=== PATIENT | female | born 1960 | race Caucasian/White ===

== ENCOUNTER → 2024-10-17 13:45 | Outpatient (CLI) | payer OTHER, SELFPAY ==
--- NOTE | 2024-10-17 13:50 | DI.RAD.S_ITS ---
PROCEDURE: XR LUMBAR SPINE MIN 4V INDICATIONS: BACK PAIN TECHNIQUE: 5 views of the lumbar spine were acquired, including bilateral oblique views. COMPARISON: None. FINDINGS: Bones: 5 nonrib-bearing vertebrae are present with possible partial lumbarization of S1 variant. Mild levoscoliosis. No vertebral body compression fractures. Multilevel degenerative changes are noted throughout the lumbar spine with disc space narrowing, facet osseous hypertrophic changes most notably at L4-5 and L5-S1. Mild degenerative changes of the sacroiliac joints and hips. Oblique images: No radiographic evidence of pars defects. IMPRESSION: Degenerative changes as discussed above. If symptoms persist or worsen, or there is high clinical suspicion of lumbar abnormality, MRI could be performed. Dictated by: Brayan Engel M.D. on 10/17/2024 at 14:46 Approved by: Brayan Engel M.D. on 10/17/2024 at 14:51
--- NOTE | 2024-10-17 13:50 | DI.RAD.S_ITS ---
PROCEDURE: XR CERVICAL SPINE 5V INDICATIONS: NECK PAIN TECHNIQUE: 5 views of the cervical spine acquired. COMPARISON: None. FINDINGS: Straightening of the normal cervical lordosis some of which may be artifact from positioning or related to muscle spasm or degenerative changes. Multilevel degenerative changes with disc space narrowing, uncovertebral and facet hypertrophic changes most notably at C3-4 through cyst C6-7. Suspected [id number] bilateral neural foraminal narrowing most notably at C3-4, C4-5. Soft tissues: No prevertebral soft tissue swelling. IMPRESSION: Degenerative changes as discussed above. If symptoms persist or worsen, or there is high clinical suspicion of cervical abnormality, MRI could be performed. Dictated by: Brayan Engel M.D. on 10/17/2024 at 14:52 Approved by: Brayan Engel M.D. on 10/17/2024 at 14:55
== END ==
PROVIDERS: PCP Family Medicine; Referring Provider Physical Medicine & Rehabilitation; Visit Provider Physical Medicine & Rehabilitation
DX: M47.812 Spondylosis without myelopathy or radiculopathy, cervical region (principal); M47.816 Spondylosis without myelopathy or radiculopathy, lumbar region; M47.817 Spondylosis without myelopathy or radiculopathy, lumbosacral region; M54.2 Cervicalgia; M54.9 Dorsalgia, unspecified
CPT/HCPCS: 72050; 72110

== ENCOUNTER 2024-11-10 09:04 | Outpatient (CLI) | payer OTHER, SELFPAY ==
[2024-11-10] VITALS (9 sets, daily range): BP systolic 127–152; BP diastolic 55–89; PULSE 67–96; RESP 12–16; TEMP 36.6; O2SAT 95–99
[2024-11-10] MEDS: MIDAZOLAM 2 MG/2 ML VIAL IV (09:56)
[2024-11-10] MEDS: DEXAMETHASONE 10 MG/ML VIAL 20 MG INJ (10:01)
[2024-11-10] MEDS: iopamidoL 15 ML VIAL 3 ML INJ (10:01)
[2024-11-10] MEDS: BUPIVACAINE 0.25% (PF) VIAL 2 ML INJ (10:01)
--- NOTE | 2024-11-10 10:15 | P.PCN_ITS ---
Date/Time/Diagnoses Date of procedure: 11/10/24 Time of procedure: 10:15 Pre-procedure diagnosis: 1. CERVICAL STENOSIS, 2. CERVICAL HNP WITH UPPER EXTREMITY RADICULAR FEATURES Post-procedure diagnosis: same Procedure Notes Procedure: 1. FLUORSCOPICALLY GUIDED CONTRAST CONTROLLED INTERLAMINAR EPIDURAL STEROID INJECTION - C6/7 TL ANGELA Indications: Naina is referred by Dr. Thurman for treatment of Cervical HNP with Upper Extremity Paresthesias. Physician: Heriberto Irizarry Total Fluoroscopy time (seconds): 31 Total sedation minutes: 16 Complications: none Procedure in detail & Post-procedure care: FINDINGS Cervical Stenosis due to disc deterioration and nerve root irritation and nerve root irritation DESCRIPTION OF PROCEDURE Fluoroscopically guided, contrast-controlled C6/7 translaminar epidural steroid injection with conscious sedation. Following review of allergy and review of potential side effects and complications, including, but not necessarily limited to, infection, allergic reaction, local tissue breakdown, temporary as well as permanent nerve injury, stroke, paralysis, and possible , the patient indicated that patient understood and agreed to proceed. An informed consent document was signed by the patient, witnessed by a nurse, and placed in the patient's chart. Additionally, other treatment options including modalities, medications, and physical therapy were reviewed with the patient. After review of previous anaesthesic history and IV conscious sedation the patient was deemed safe to proceed with today?s procedure with IV conscious sedation as ASA class II designation. Safety time-out was performed to confirm patient ID, procedure to be performed and site of procedure. IV sedation was accomplished with a combination of 2mg of Versed administered by the RN after DO order, titrated to patient comfort during the course of the procedure while the patient remained responsive to all verbal commands. In the prone position, following sterile prep and drape of the cervical region, the C6/7 translaminar space was identified fluoroscopically. The skin was anesthetized via a 25-gauge 1.5-inch needle with 1% lidocaine solution. At this point, a 25-gauge, 2.5-inch short bevel spinal needle was atraumatically introduced and advanced under fluoroscopic guidance into epidural space at the C6/7 translaminar space. Depth was confirmed on lateral view. Radiological data, including multiple fluoroscopic views of the cervical spine, reveal a spinal needle at the C6/7 translaminar space. Lateral views then show placement of the needle in the epidural space. Subsequent views show contrast material flowing superiorly and inferiorly in the epidural space. DSA fluoroscopy with live contrast injection, once again, confirmed no vascular or intrathecal uptake. At this point, using loss of resistance technique with saline and air, the epidural space was entered. Following negative aspiration, injection of approximately 1.5 cc of Isovue-200 with live fluoroscopy in the AP view confirmed epidural flow in the epidural space without vascular or intrathecal uptake observed. Subsequently, a test dose of 1 cc of 1% lidocaine solution was injected and patient was observed for two minutes without signs or symptoms of complications, including abdominal pain, shortness of breath, bilateral upper or lower extremity weakness, nausea and vomiting, prior to steroid injection. At this point, 2cc or 20mg of dexamethasone was then injected without incident. The patient tolerated the procedure well without signs or symptoms of comp lications prior to being transferred to the recovery area for further monitoring, The patient was then transferred to the recovery area where they were observed for an appropriate period of time after the injection. The patient reported a VAS score of 6 prior to the procedure and a post-procedure VAS of 0. POST OP INSTRUCTIONS The patient was provided a Pain Log to continue to record their response to the target-specific procedure prior to follow-up visit with the referring provider. Additionally, specific post-injection care instructions and a contact number to our office were provided if concerns arise regarding possible complications associated with the procedure are suspected.
== END 2024-11-10 10:25 | disposition home or self-care (01) ==
LOC: RAD 09:05
PROVIDERS: PCP Family Medicine; Referring Provider Physical Medicine & Rehabilitation; Visit Provider Physical Medicine & Rehabilitation
DX: M48.02 Spinal stenosis, cervical region (principal); M50.123 Cervical disc disorder at C6-C7 level with radiculopathy
CPT/HCPCS: 62321; 99152; J1100; J2250; J3490